=== PATIENT | female | born 1935 | race Caucasian/White ===

== ENCOUNTER 2017-02-16 05:25 | Inpatient (IN) | payer OTHER ==
[~2017-02-16] VITALS: Ht 157.5 cm; Wt 60.8 kg
[~2017-02-16 05:25] MED LIST: LOSA50TA3 PO; PRAV40TA PO; TIMO5DRO16 OP
[2017-02-16] MEDS ORDERED: POLYMYXIN 500,000/BACIT.10,000 UNITS in NS IRR 1 L IR ONE (07:08)
[2017-02-16] MEDS ORDERED: D5/0.45 NS 1,000 ML IV ONE (07:21)
[2017-02-16] MEDS ORDERED: BISACODYL 10 MG/SUPPOSITORY RC PRN (07:30)
[2017-02-16] MEDS ORDERED: MORPHINE SULFATE 10 MG/ML VIAL IM PRN (07:30)
[2017-02-16] MEDS ORDERED: TRANEXAMIC ACID 1,000 MG/10 ML VIAL IV ONE (08:00)
[2017-02-16] MEDS ORDERED: LR 1,000 ML IV SCH (08:39)
[2017-02-16] MEDS ORDERED: KETOROLAC TROMETHAMINE 60 MG/2 ML VIAL IM PRN (08:45)
[2017-02-16] MEDS ORDERED: NALOXONE HCL 0.4 MG/ML AMP (NARCAN) IVP PRN (08:45)
[2017-02-16] MEDS ORDERED: METOCLOPRAMIDE HCL 10 MG/2 ML VIAL IVP PRN (08:45)
[2017-02-16] MEDS ORDERED: DIPHENHYDRAMINE INJ 50 MG/ML VIAL IM PRN (08:45)
[2017-02-16] MEDS ORDERED: MORPHINE SULFATE 10MG/10ML PF AMP SP SCH (08:45)
[2017-02-16 10:05] VITALS: BP_SYST 128
[2017-02-16] MEDS: ONDANSETRON HCL 4 MG/2 ML VIAL IVP PRN (10:45)
[2017-02-16] MEDS: CEFAZOLIN 1 GM IVPB PREMIX 50 ML IV SCH ×2 (10:51→17:47)
[2017-02-16] MEDS ORDERED: MORPHINE SULFATE 10MG/10ML PF AMP ONE (12:00)
[2017-02-16] MEDS ORDERED: NORMAL SALINE 10 ML VIAL ONE (12:00)
[2017-02-16] MEDS ORDERED: MIDAZOLAM HCL 5 MG/5 ML VIAL ONE (12:00)
[2017-02-16] MEDS ORDERED: ONDANSETRON HCL 4 MG/2 ML VIAL ONE (12:00)
[2017-02-16] MEDS ORDERED: fentaNYL CITRATE/PF 100 MCG/2 ML AMP ONE (12:00)
[2017-02-16] MEDS ORDERED: LR 1,000 ML IV.SOLN IV ONE (12:00)
[2017-02-16] MEDS ORDERED: VANCOMYCIN HCL 1000 MG/VIAL IV ONE (12:00)
[2017-02-16] MEDS ORDERED: CLINDAMYCIN PHOSPHATE 900 mg/50mL D5W IV ONE (12:00)
[2017-02-16 12:27] VITALS: BP_SYST 125
[2017-02-16 16:00] VITALS: BP_SYST 137
[2017-02-16 16:23] VITALS: BP_SYST 125
[2017-02-16] MEDS: RIVAROXABAN 10 MG TABLET PO SCH (17:07)
[2017-02-16 20:07] VITALS: BP_SYST 138
[2017-02-17 01:03] VITALS: BP_SYST 138
[2017-02-17 03:53] VITALS: BP_SYST 133
[2017-02-17 06:44] LABS: ALANINE AMINOTRANSFERASE 19 U/L (12-78); ALBUMIN 3.4 g/dL (3.4-4.8); ANION GAP 4 (5-15); ASPARTATE AMINOTRANSFERASE 16 U/L (10-37); CALCIUM 8.4 mg/dL (8.4-11.0); CHLORIDE 106 mmol/L (98-107); CREATININE 1.04 mg/dL (0.55-1.30); GLUCOSE 105 mg/dL (70-99); POTASSIUM 3.7 mmol/L (3.5-5.1); SODIUM SERUM 138 mmol/L (136-145); TOTAL BILIRUBIN 0.6 mg/dL (0.0-1.0); TOTAL PROTEIN, SERUM 6.4 g/dL (6.4-8.3); UREA NITROGEN, BLOOD 18 mg/dL (8-21)
[2017-02-17 06:47] LABS: BASOPHILS % (AUTO) 0.2 % (0.0-2.0); EOSINOPHILS % (AUTO) 0.3 % (0.0-4.0); HEMATOCRIT 30.4 % (36-48); LYMPHOCYTES # (AUTO) 0.7 K/uL (1.0-5.5); LYMPHOCYTES % (AUTO) 6.7 % (20.5-51.5); MEAN CORPUSCULAR HEMOGLOBIN 30 pg (27-31); MEAN CORPUSCULAR HGB CONC 33 % (32-36); MEAN CORPUSCULAR VOLUME 91 fL (79.0-98.0); MONOCYTES # (AUTO) 0.9 K/uL (0.0-1.0); MONOCYTES % (AUTO) 8.5 % (1.7-9.3); NEUTROPHILS % (AUTO) 84.3 % (40.0-70.0); PLATELET COUNT (AUTO) 166 K/uL (130-430); RED BLOOD CELL COUNT(AUTO) 3.36 MIL/uL (4.2-6.2); RED CELL DISTRIBUTION WIDTH 12.5 % (9.0-15.0); WHITE BLOOD COUNT (AUTO) 10.6 K/uL (4.8-10.8)
[2017-02-17] MEDS: PRAVASTATIN SODIUM 20 MG TABLET (PRAVACHOL) PO SCH (08:06)
[2017-02-17] MEDS: ONDANSETRON HCL 4 MG/2 ML VIAL IVP PRN (08:07)
[2017-02-17] MEDS: LOSARTAN POTASSIUM 50 MG TABLET (COZAAR) PO SCH (08:07)
[2017-02-17] MEDS: TIMOLOL MALEATE 0.25% OPHTHALMIC DROPS 5 ML OP SCH (08:08)
[2017-02-17 08:10] VITALS: BP_SYST 136
[2017-02-17] MEDS: HYDROcodone/ACETAMIN 7.5-325 MG TAB PO PRN ×2 (08:38→15:22)
[2017-02-17 12:31] VITALS: BP_SYST 129
[2017-02-17 16:10] VITALS: BP_SYST 130
[2017-02-17] MEDS: RIVAROXABAN 10 MG TABLET PO SCH (17:29)
[2017-02-17 20:15] VITALS: BP_SYST 157
[2017-02-17] MEDS: ACETAMINOPHEN 325 MG TABLET PO PRN (20:47)
[2017-02-18 00:29] VITALS: BP_SYST 144
[2017-02-18 04:12] VITALS: BP_SYST 123
[2017-02-18 08:00] VITALS: BP_SYST 137
[2017-02-18] MEDS: HYDROcodone/ACETAMIN 7.5-325 MG TAB PO PRN (08:05)
[2017-02-18] MEDS: PRAVASTATIN SODIUM 20 MG TABLET (PRAVACHOL) PO SCH (08:05)
[2017-02-18] MEDS: LOSARTAN POTASSIUM 50 MG TABLET (COZAAR) PO SCH (08:06)
[2017-02-18 12:00] VITALS: BP_SYST 155
[2017-02-18] MEDS: TIMOLOL MALEATE 0.25% OPHTHALMIC DROPS 5 ML OP SCH (14:00)
[2017-02-18 16:00] VITALS: BP_SYST 169
[2017-02-18] MEDS: ACETAMINOPHEN 325 MG TABLET PO PRN (17:21)
[2017-02-18] MEDS: RIVAROXABAN 10 MG TABLET PO SCH (17:21)
[2017-02-18] MEDS ORDERED: LEVOFLOXACIN 500 MG/D5W 100 ML IV SCH (21:00)
[2017-02-18] MEDS: metroNIDAZOLE 250 mg/NS 50 ML IV SCH (21:07)
[2017-02-18 23:36] LABS: BILIRUBIN,URINE NEGATIVE (NEGATIVE); BLOOD, URINE 1+ (NEGATIVE); CLARITY/URINE CLEAR (CLEAR); COLOR,URINE YELLOW (YELLOW); GLUCOSE,URINE NEGATIVE (NEGATIVE); KETONES,URINE NEGATIVE (NEGATIVE); LEUKOCYTE ESTERASE ,URINE TRACE (NEGATIVE); NITRITE, URINE NEGATIVE (NEGATIVE); PROTEIN URINE 1+ (NEGATIVE)
[2017-02-19 00:26] VITALS: BP_SYST 146
[2017-02-19 01:50] LABS: BACTERIA,URINE FEW /HPF (None Seen); RBC,URINE 0-3 /HPF (0-3)
[2017-02-19 01:51] LABS: MUCUS,URINE None Seen /LPF (None Seen)
[2017-02-19] MEDS: HYDROcodone/ACETAMIN 7.5-325 MG TAB PO PRN ×2 (02:31→08:48)
[2017-02-19 04:00] VITALS: BP_SYST 137
[2017-02-19] MEDS: metroNIDAZOLE 250 mg/NS 50 ML IV SCH (05:33)
[2017-02-19 08:42] VITALS: BP_SYST 148
[2017-02-19] MEDS: LOSARTAN POTASSIUM 50 MG TABLET (COZAAR) PO SCH (08:47)
[2017-02-19] MEDS: TIMOLOL MALEATE 0.25% OPHTHALMIC DROPS 5 ML OP SCH (08:48)
[2017-02-19] MEDS: PRAVASTATIN SODIUM 20 MG TABLET (PRAVACHOL) PO SCH (09:00)
[2017-02-19 11:34] VITALS: BP_SYST 148
[2017-02-19] MEDS ORDERED: LACTOBACILLUS RHAMNOSUS GG 1 CAP CAPSULE PO SCH (21:00)
== END 2017-02-19 13:25 | disposition home or self-care (01) | DRG 470 ==
LOC: SMU 05:25
PROVIDERS: ADMIT Orthopaedic Surgery; ATTEND Orthopaedic Surgery
PROC: 0SRC0J9 Replacement of Right Knee Joint with Synthetic Substitute, Cemented, Open Approach (ICD-10-PCS; principal; 2017-02-16 07:30)
DX: M17.11 Unilateral primary osteoarthritis, right knee (principal); J98.11 Atelectasis; R50.82 Postprocedural fever; I10 Essential (primary) hypertension; I73.9 Peripheral vascular disease, unspecified; E78.00 Pure hypercholesterolemia, unspecified; Z95.820 Peripheral vascular angioplasty status with implants and grafts; Z90.710 Acquired absence of both cervix and uterus; Z88.0 Allergy status to penicillin
CPT/HCPCS: 36415; 71010; 80053; 81000-TC; 85025; 87040-TC; 87081; 88305; 88311; 94010; 97039; 97110-GP; 97116-GP; 97530-GP; C1713; C1776; J0690; J1885; J1956; J2250; J2270; J2274; J2405; J3010; J3370; J3490; J7120